=== PATIENT | female | born 1975 | race Caucasian/White ===

== ENCOUNTER 2021-03-24 06:37 | Emergency (ER) | payer OTHER ==
[2021-03-24 07:11] LABS: BASOPHIL 0.6 % (0-2); EOSINOPHIL 2.1 % (0-5); HCT 40.9 % (37.0-47.0); HGB 14.2 g/dl (12.5-16.0); LYMPHOCYTE 11.4 % (15-48); MCH 31.3 pg (25.0-31.0); MCHC 34.7 g/dL (32.0-36.0); MCV 90.1 fL (78.0-100.0); MONOCYTE 9.5 % (0-12); NEUTROPHIL 75.9 % (41-80); NRBC 0; PLT 321 K/uL (150-400); RBC 4.54 M/uL (4.20-5.40); RDW 11.9 % (11.5-14.0); WBC 14.4 K/uL (4.0-10.5)
[2021-03-24 07:35] LABS: LACTIC ACID 1.6 mmol/L (0.4-1.9)
[2021-03-24 07:36] LABS: PRO-BNP 32 pg/mL (<125)
[2021-03-24 07:39] LABS: ALBUMIN 3.7 g/dL (3.4-5.0); BILIRUBIN - TOTAL 0.7 mg/dL (0.2-1.0); BUN/CREAT RATIO (CALC) 8.5 RATIO; C-REACTIVE PROTEIN 4.6 mg/dL (<=0.90); CREATININE 0.71 mg/dL (0.51-0.95); POTASSIUM 3.7 mmol/L (3.5-5.1); TOTAL PROTEIN 7.7 g/dL (6.4-8.2)
[2021-03-24 07:44] LABS: CORONAVIRUS 2019 SARS-COV-2 NEGATIVE (NEGATIVE); INFLUENZA A NAA NEGATIVE (NEGATIVE)
[2021-03-24 08:55] LABS: BILIRUBIN NEGATIVE (NEGATIVE); BLOOD NEGATIVE Ery/uL (NEGATIVE); CLARITY HAZY (CLEAR); COLOR YELLOW (YELLOW); GLUCOSE (U) NORMAL (NORMAL); LEUKOCYTES NEGATIVE Leu/uL (NEGATIVE); NITRITE NEGATIVE (NEGATIVE); PROTEIN NEGATIVE (NEGATIVE); UROBILINOGEN 0.2 mg/dL (0.2-1.0); pH 6.5 (5.0-9.0)
[2021-03-24] MEDS ORDERED: ONDANSETRON ODT4 MG PO (09:43)
[2021-03-24] MEDS ORDERED: VENTOLIN HFA18 GM INH (09:43)
[2021-03-24] MEDS ORDERED: MEDROL 4MG DOSEP4 MG PO (09:43)
[2021-03-24] MEDS ORDERED: ZITHROMAX TRI-500 MG PO (09:43)
== END 2021-03-24 10:01 | disposition home or self-care (01) ==
LOC: FER 06:37
PROVIDERS: Emergency Medicine Emergency Medical Services
DX: J32.9 Chronic sinusitis, unspecified (principal); J40 Bronchitis, not specified as acute or chronic; R91.1 Solitary pulmonary nodule; I10 Essential (primary) hypertension; Z87.891 Personal history of nicotine dependence; Z20.822 Contact with and (suspected) exposure to COVID-19; Z79.899 Other long term (current) drug therapy
CPT/HCPCS: 36415; 71045; 71250; 80053; 81003; 82728; 83605; 83880; 84145; 84484; 85025; 85379; 86140; 87040; 87076; 87088; 87186; 87880; 93005; 94640; 94664; J2405; J2930; J7040; U0002

== ENCOUNTER 2021-09-28 07:46 | Emergency (ER) | payer SELFPAY ==
[~2021-09-28 07:46] MED LIST: MEDROL 4MG DOSEP4 MG PO; ONDANSETRON ODT4 MG PO; VENTOLIN HFA18 GM INH; ZITHROMAX TRI-500 MG PO
[2021-09-28] MEDS ORDERED: NAPROXEN500 MG PO (08:27)
== END 2021-09-28 08:43 | disposition home or self-care (01) ==
LOC: FER 07:46
DX: S16.1XXA Strain of muscle, fascia and tendon at neck level, initial encounter (principal); I10 Essential (primary) hypertension; F17.210 Nicotine dependence, cigarettes, uncomplicated; Z79.899 Other long term (current) drug therapy; X50.9XXA Other and unspecified overexertion or strenuous movements or postures, initial encounter; Y92.89 Other specified places as the place of occurrence of the external cause; Y99.0 Civilian activity done for income or pay
CPT/HCPCS: 99283; J1885